=== PATIENT | male | born 1955 | race Caucasian/White ===

== ENCOUNTER 2017-01-01 23:49 | Inpatient (IN) ==
[2017-01-02] MEDS ORDERED: 0.9 % Sodium Chloride 1,000 ML IVC ONE (00:21)
--- NOTE | 2017-01-02 00:21 | Emergency Department Note ---
Disposition Clinical Impression: UTI (urinary tract infection) Qualifiers: Urinary tract infection type: acute cystitis Hematuria presence: without hematuria Qualified Code(s): N30.00 - Acute cystitis without hematuria Disposition: Home, Self-Care Condition: Good Instructions: Urinary Tract Infection in Women (ED) Referrals: NO,PCP [Primary Care Provider] - Forms: ED Satisfaction Letter Time of Disposition: 02:00 Fever HPI - General Chief Complaint: ED Fever Stated Complaint: face all splotchy the other day Time Seen by Provider: 01/02/17 00:15 Source: patient Mode of arrival: ambulatory Limitations: no limitations Nursing Notes Reviewed: Yes Vital Signs Reviewed: Yes - History of Present Illness HPI Narrative: 61-year-old white male with a one-day history of fever and chills. No cough. No earache or sore throat. No vomiting or diarrhea. No frequency or urgency. He has a history of "lung infection" in the past. Pt Subjective Complaint: fever Onset (ago): day(s) (1) Maximum Temperature Reported: 102 F Temperature Source: oral Associated symptoms: Reports: chills Improves with: nothing Worsens with: nothing Treatments prior to arrival fever: none - Related Data Home Medications Medication Instructions Recorded Confirmed Unable To Obtain [Unable to Obtain] 01/01/17 01/01/17 Allergies Allergy/AdvReac Type Severity Reaction Status Date / Time tramadol AdvReac Itching Verified 01/01/17 23:53 All systems ED: reviewed and negative except as stated. Constitutional: Reports: fever, chills Eyes: Denies: eye discharge ENT ED: Denies: ear pain, throat pain Cardiovascular: Denies: chest pain Respiratory: Denies: cough, dyspnea Gastrointestinal: Denies: abdominal pain, nausea, vomiting Genitourinary: Denies: urgency, dysuria, frequency Musculoskeletal: Denies: back pain Integumentary: Denies: rash Neurological: Denies: headache, weakness, numbness, paresthesias Fever PMH - Past Medical History Medical history: Reports: atrial fibrillation, COPD, DVT, other Surgical history: Reports: herniorrhaphy, orthopedic, other (Knee surgery, bilateral carpal tunnel), other (Multiple epidurals, eye surgery) Psychiatric history: Reports: no psych history - Social History Smoking Status: Former smoker Alcohol use: Reports: occasionally Drug use: Reports: none Physical Exam - General Limitations: no limitations General appearance: alert, in no apparent distress - Eye Eye exam: Present: PERRL, EOMI. Absent: scleral icterus, conjunctival injection - ENT ENT exam: normal oropharynx, mucous membranes moist, TM's normal bilaterally - Neck Neck exam: Present: normal inspection, full ROM, trachea midline, lymphadenopathy. Absent: tenderness, meningismus - Respiratory Respiratory exam: Present: normal lung sounds bilaterally. Absent: respiratory distress, wheezes - Cardiovascular Cardiovascular exam: Present: regular rate, normal rhythm, normal heart sounds - Abdominal Exam Abdominal exam: Present: soft, Non-Tender, normal bowel sounds. Absent: organomegaly, mass - Neurological Exam Neurological exam: Present: alert, oriented X3, normal gait - Psychiatric Psychiatric exam: Present: normal affect, normal mood - Skin Skin exam: Present: warm, dry, intact. Absent: erythema Course Vital Signs Temperature 101.4 F H 01/01/17 23:50 Pulse Rate 101 01/01/17 23:50 Respiratory Rate 16 01/01/17 23:50 Blood Pressure 148/77 01/01/17 23:50 O2 Sat by Pulse Oximetry 93 01/01/17 23:50 Temperature 102.9 F H 01/02/17 01:19 Pulse Rate 115 01/02/17 01:51 Respiratory Rate 18 01/02/17 01:51 Blood Pressure 130/45 01/02/17 01:51 O2 Sat by Pulse Oximetry 96 01/02/17 01:51 Oxygen Delivery Oxygen Delivery Room Air Fever - MDM Narrative Medical decision making narrative: Medically he has a persistent fever, he has nitrite positive urine, possible source. He has no elevated white blood cell count. He has a history of bacteremia and/or sepsis. His lactic acid is mildly elevated. I aggressively hydrated him and cover with antibiotics for the possibility of sepsis. I will put him in an observation bed after talking with Dr. Frank. - Differential Diagnosis Likely: cellulitis, fever of occult origin, community acquired pneumonia, pyelonephritis, viral infection, sepsis, influenza - Lab Data Lab results reviewed: Yes I reviewed the patient's lab results. Result diagrams: 01/02/17 00:30 01/02/17 00:30 Lab Results 01/02/17 01/02/17 01/02/17 Range/Units 00:30 00:30 00:30 WBC 7.6 (4.3-11.1) K/mcL RBC 4.12 L (4.19-5.50) M/mcL Hgb 13.1 (12.9-16.9) g/dL Hct 39.1 (37.5-50.1) % MCV 94.9 (83.0-100.0) fL MCH 31.8 (28.0-33.3) pg MCHC 33.5 (31.6-35.5) g/dL RDW 15.9 H (11.5-14.5) % Plt Count 109 L (140-400) K/mcL MPV 10.7 (9.4-12.4) fL Immature Gran % 0.5 (0-4) % Seg Neutrophils % 81.1 % Lymphocytes % 6.0 % Monocytes % 12.2 % Eosinophils % 0.1 % Basophils % 0.1 % Neutrophils # 6.2 (1.6-8.9) K/mcL Lymphocytes # 0.5 L (0.6-4.6) K/mcL Monocytes # 0.9 (0.0-1.3) K/mcL Eosinophils # 0.0 (0.0-0.6) K/mcL Basophils # 0.0 (0.0-0.2) K/mcL VBG Lactic Acid 3.1 H (0.5-2.2) mmol/L Sodium 133 L (136-145) mEq/L Potassium 4.6 H (3.5-4.5) mEq/L Chloride 99 (98-109) mEq/L Carbon Dioxide 23 (19-29) mEq/L BUN 8 (8-26) mg/dL Creatinine 0.76 (0.72-1.25) mg/dL Est GFR ( Amer) > 60 (> 60) Est GFR (Non-Af Amer) > 60 (> 60) BUN/Creatinine Ratio 11 (6-26) Glucose 191 H (70-99) mg/dL Calculated Osmolality 279 L (280-300) Calcium 9.4 (8.6-10.8) mg/dL Total Bilirubin 2.0 H (0.2-1.2) mg/dL AST 60 H (5-34) Units/L ALT 44 (0-55) Units/L Alkaline Phosphatase 94 (38-126) Units/L Serum Total Protein 7.0 (6.0-8.3) g/dL Albumin 3.5 (3.5-5.0) g/dL Globulin 3.5 (2.4-3.5) g/dL Albumin/Globulin Ratio 1.0 L (1.1-2.2) Urine Color (Yellow) Urine Clarity (Clear) Urine pH (5.0-8.0) pH Units Ur Specific [place] (1.010-1.025) Urine Protein (Neg-Trace) mg/dL Urine Glucose (UA) (Normal) mg/dL Urine Ketones (Negative) mg/dL Urine Blood (Negative) Urine Nitrite (Negative) Urine Bilirubin (Negative) Urine Urobilinogen (Normal) mg/dL Ur Leukocyte Esterase (Negative) 01/02/17 Range/Units 00:31 WBC (4.3-11.1) K/mcL RBC (4.19-5.50) M/mcL Hgb (12.9-16.9) g/dL Hct (37.5-50.1) % MCV (83.0-100.0) fL MCH (28.0-33.3) pg MCHC (31.6-35.5) g/dL RDW (11.5-14.5) % Plt Count (140-400) K/mcL MPV (9.4-12.4) fL Immature Gran % (0-4) % Seg Neutrophils % % Lymphocytes % % Monocytes % % Eosinophils % % Basophils % % Neutrophils # (1.6-8.9) K/mcL Lymphocytes # (0.6-4.6) K/mcL Monocytes # (0.0-1.3) K/mcL Eosinophils # (0.0-0.6) K/mcL Basophils # (0.0-0.2) K/mcL VBG Lactic Acid (0.5-2.2) mmol/L Sodium (136-145) mEq/L Potassium (3.5-4.5) mEq/L Chloride (98-109) mEq/L Carbon Dioxide (19-29) mEq/L BUN (8-26) mg/dL Creatinine (0.72-1.25) mg/dL Est GFR ( Amer) (> 60) Est GFR (Non-Af Amer) (> 60) BUN/Creatinine Ratio (6-26) Glucose (70-99) mg/dL Calculated Osmolality (280-300) Calcium (8.6-10.8) mg/dL Total Bilirubin (0.2-1.2) mg/dL AST (5-34) Units/L ALT (0-55) Units/L Alkaline Phosphatase (38-126) Units/L Serum Total Protein (6.0-8.3) g/dL Albumin (3.5-5.0) g/dL Globulin (2.4-3.5) g/dL Albumin/Globulin Ratio (1.1-2.2) Urine Color Dark Yellow (Yellow) Urine Clarity Clear (Clear) Urine pH 6.5 (5.0-8.0) pH Units Ur Specific [place] 1.020 (1.010-1.025) Urine Protein 30 H (Neg-Trace) mg/dL Urine Glucose (UA) Normal (Normal) mg/dL Urine Ketones Negative (Negative) mg/dL Urine Blood Trace-intact H (Negative) Urine Nitrite Positive A (Negative) Urine Bilirubin Small H (Negative) Urine Urobilinogen Normal (Normal) mg/dL Ur Leukocyte Esterase Negative (Negative) - Radiology Data Radiology results reviewed: Yes I reviewed the patient's radiology results. ITS Impressions Chest X-Ray 01/02/17 00:18 IMPRESSION: No acute cardiac or pulmonary disease. D/ / Quentin Barboza MD / Quentin Barboza MD Interpreting Provider: Quentin Barboza MD
[2017-01-02 00:45] LABS: Basophils % 0.1 %; Eosinophils % 0.1 %; Hematocrit 39.1 % (37.5-50.1); Hemoglobin 13.1 g/dL (12.9-16.9); Immature Granulocytes % 0.5 % (0-4); Lymphocytes # 0.5 K/mcL (0.6-4.6); Mean Corpuscular HGB Conc 33.5 g/dL (31.6-35.5); Mean Corpuscular Hemoglobin 31.8 pg (28.0-33.3); Mean Corpuscular Volume 94.9 fL (83.0-100.0); Mean Platelet Volume 10.7 fL (9.4-12.4); Monocytes # 0.9 K/mcL (0.0-1.3); Monocytes % 12.2 %; Neutrophils # 6.2 K/mcL (1.6-8.9); Platelet Count 109 K/mcL (140-400); Red Blood Count 4.12 M/mcL (4.19-5.50); Red Cell Distribution Width 15.9 % (11.5-14.5); Segmented Neutrophils % 81.1 %
[2017-01-02 01:05] LABS: Alanine Aminotransferase 44 Units/L (0-55); Albumin 3.5 g/dL (3.5-5.0); Alkaline Phosphatase 94 Units/L (38-126); Aspartate Amino Transferase 60 Units/L (5-34); BUN/Creatinine Ratio 11 (6-26); Blood Urea Nitrogen 8 mg/dL (8-26); Calcium 9.4 mg/dL (8.6-10.8); Carbon Dioxide 23 mEq/L (19-29); Chloride 99 mEq/L (98-109); Globulin 3.5 g/dL (2.4-3.5); Glucose 191 mg/dL (70-99); Osmolality,Calculated 279 (280-300); Potassium 4.6 mEq/L (3.5-4.5); Sodium 133 mEq/L (136-145); eGFR For African Americans > 60 (> 60); eGFR For Non-African Americans > 60 (> 60)
[2017-01-02 01:05] LABS: Bilirubin,Urine Small (Negative); Blood,Urine Trace-intact (Negative); Clarity,Urine Clear (Clear); Color,Urine Dark Yellow (Yellow); Glucose,Urine (UA) Normal (Normal); Ketones,Urine Negative (Negative); Leukocyte Esterase,Urine Negative (Negative); Nitrite,Urine Positive (Negative); PH,Urine 6.5 pH Units (5.0-8.0); Protein,Urine 30 mg/dL (Neg-Trace); Urobilinogen,Urine Normal (Normal)
[2017-01-02] MEDS ORDERED: Ibuprofen 800 MG TABLET PO STA (01:39)
[2017-01-02] MEDS ORDERED: Naloxone 0.4 MG/ML INJ IVP PRN (02:54)
[2017-01-02] MEDS ORDERED: Levofloxacin 750 MG/150 ML 750 MG/150 ML BAG IVPB ONE (03:07)
[2017-01-02] MEDS: 0.9 % Sodium Chloride 1,000 ML IVC SCH ×2 (03:53→18:54)
--- NOTE | 2017-01-02 12:15 | Internal Med History&Physical ---
Date of Encounter: 01/02/17 Time of Encounter: 11:35 Assessment and Plan (1) Neutrophilia Current visit: Yes Status: Acute Suspect viral infection. Urinalysis and chest x-ray showed no obvious abnormality. (2) Atrial fibrillation Current visit: Yes Status: Chronic Continue Coumadin. Will check pro time/INR in a.m. Qualifiers: Atrial fibrillation type: chronic Qualified Code(s): I48.2 - Chronic atrial fibrillation (3) Hyperglycemia Current visit: Yes Status: Acute We will check hemoglobin A1c in a.m. (4) Thrombocytopenia Current visit: Yes Status: Acute Platelet count was normal at 147,000 in August 2014. We will recheck labs in a.m. (5) Hypothyroidism Current visit: Yes Status: Acute We will check TSH in a.m. Qualifiers: Hypothyroidism type: unspecified Qualified Code(s): E03.9 - Hypothyroidism , unspecified (6) Gout Current visit: Yes Status: Chronic We will check uric acid level in a.m. Qualifiers: Gout site: unspecified site Gout etiology: unspecified cause Chronicity: chronic Presence of tophus: without tophus Qualified Code(s): M1A.9XX0 - Chronic gout, unspecified, without tophus (tophi) Internal Medicine - H&P: HPI Chief complaint: Dyspnea and fever Admitted From: Home Plans for Post Hospital Care: Home History of present illness: Mr. Craig is a 61 year old male who came to emergency room stating he awakened that morning with discomfort in his ribs and dyspnea. Later in the day he spiked fever up to 101. He came to emergency room for further evaluation. He was found to have neutrophilia without leukocytosis. He was admitted to [facility] floor for ongoing care needs. He denies cough nausea vomiting or diarrhea. He has chronic low back pain but denies other pain. He denies family or friends with similar illness. Past Med Surg Social Fam HX - Past Medical History Medical history: atrial fibrillation, COPD, DVT, other Psychiatric history: no psych history - Past Surgical History Surgical History: herniorrhaphy, orthopedic, other, other - Social History Smoking Status: Former smoker Packs per day: 1/2 pack Smokeless Tobacco Status: Yes Alcohol use: occasionally Drug use: none Internal Medicine - H&P: Meds Unable To Obtain [Unable to Obtain] 01/01/17 [History] Allergies tramadol Adverse Reaction (Verified 01/01/17 23:53) Itching All Systems PM: A 10-system review of systems was performed and is negative for pertinent findings except as documented above in the HPI. Review of systems: Gen.: He states his weight has been stable past few months Cardiovascular: He has chronic atrial fibrillation. He had DVT approximately 2008 and had [place]vie filter placed. He denies hypertension heart failure or pulmonary embolism Respiratory: He smoked between age [age] a total of 25 years up to one half pack per day. He has a diagnosis of COPD but does not wear home oxygen. 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 He quit drinking vodka approximately 6 months ago. He still drinks approximately 2 beers per day. He denies disorders of his gallbladder or exocrine pancreas : Denies hematuria dysuria or kidney stones Neurologic: He denies large distribution strokes or seizures Endocrine: He has hypothyroidism but denies diabetes or hyperlipidemia Hematology/oncology: He was found to have thrombocytopenia in the emergency room. He denies anemia or other blood disorders or internal malignancies Psychiatric: He denies anxiety depression or other mental health issues Musk skeletal: He has a diagnosis of gout. He is uncertain if he has rheumatoid arthritis. He denies other bone joint or muscle disorders. - Constitutional Vitals: Temp Pulse Resp BP Pulse Ox 98.3 F 96 19 103/67 96 01/02/17 07:13 01/02/17 07:13 01/02/17 07:13 01/02/17 07:13 01/02/17 07:13 Exam: Gen.: He is well-developed overweight male who appears in no severe distress at present time HEENT: Head is atraumatic and normal cephalic. Eyes: EOMI. There is no scleral icterus. Mouth: Mucosa is moist. Neck: Supple and nontender. There is no thyromegaly or adenopathy noted. Heart: Irregularly irregular with rate 104/m Lungs: No wheezes or crackles are heard. Abdomen: Soft and nontender. No masses or guarding noted. Questionable ascites on percussion. He has several dilated tortuous veins on the anterior and bilateral abdominal wall. Extremities: There is no cyanosis noted. He has chronic venous stasis pigmentation changes of his lower legs bilaterally. He has significant desquamation of the skin of his lower legs and feet. Dorsalis pedis and posterior tibial pulses are nonpalpable. Neurologic: Mental status: He is talkative and a reliable historian. Cranial nerves: Smile is symmetric. Forehead wrinkles bilaterally. Tongue protrudes midline. EOMI. Motor: There is no pronator drift. Cerebellar: Finger to nose is intact bilaterally. Skin: Warm and dry Internal Med - H&P Results - Labs CBC & Chem 7: 01/02/17 00:30 01/02/17 00:30 Labs: Cardiac Enzymes 01/02/17 01/02/17 Range/Units 03:30 08:50 Troponin I 0.04 H* 0.02 (0-0.03) ng/mL
[2017-01-02] MEDS: Acetaminophen 325 MG TABLET PO PRN ×2 (12:19→18:46)
[2017-01-02] MEDS: Ketorolac 30 MG/ML VIAL IVP PRN ×2 (14:49→21:01)
[2017-01-02 15:21] LABS: Acinetobacter baumannii by PCR Not Detected (Not Detect); Candida albicans by PCR Not Detected (Not Detect); Candida glabrata by PCR Not Detected (Not Detect); Candida krusei by PCR Not Detected (Not Detect); Candida parapsilosis by PCR Not Detected (Not Detect); Candida tropicalis by PCR Not Detected (Not Detect); Enterococcus by PCR Not Detected (Not Detect); Escherichia coli by PCR Not Detected (Not Detect); Klebsiella oxytoca by PCR Not Detected (Not Detect); Klebsiella pneumoniae by PCR Not Detected (Not Detect); Pseudomonas aeruginosa by PCR Not Detected (Not Detect); Serratia marcescens by PCR Not Detected (Not Detect); Staphylococcus aureus by PCR Not Detected (Not Detect); Streptococcus agalactiae(B)PCR Not Detected (Not Detect); Streptococcus by PCR ***DETECTED*** (Not Detect); Streptococcus pneumoniae PCR Not Detected (Not Detect); Streptococcus pyogenes (A) PCR Not Detected (Not Detect); blaKPC Carbapenem-Resist Gene Not Detected (Not Detect); mecA Methicillin-Resist Gene Not Detected (Not Detect); vanA/B Vancomycin-Resist Genes Not Detected (Not Detect)
[2017-01-02] MEDS: *HR* Enoxaparin 40 MG/0.4 ML SYRINGE SQ SCH (18:47)
[2017-01-02] MEDS: Lactobacillus 1 EACH CAP.SPRINK PO SCH (20:56)
[2017-01-02] MEDS: Pregabalin 75 MG CAPSULE PO SCH (21:01)
[2017-01-03] MEDS: *HR* Enoxaparin 40 MG/0.4 ML SYRINGE SQ SCH (05:06)
[2017-01-03] MEDS: 0.9 % Sodium Chloride 1,000 ML IVC SCH (05:07)
[2017-01-03 06:06] LABS: Basophils % 0.6 %; Eosinophils % 0.6 %; Hematocrit 35.7 % (37.5-50.1); Hemoglobin 11.9 g/dL (12.9-16.9); INR 1.9; Lymphocytes # 0.3 K/mcL (0.6-4.6); Mean Corpuscular HGB Conc 33.3 g/dL (31.6-35.5); Mean Corpuscular Hemoglobin 31.6 pg (28.0-33.3); Mean Corpuscular Volume 94.9 fL (83.0-100.0); Mean Platelet Volume 11.3 fL (9.4-12.4); Monocytes # 0.5 K/mcL (0.0-1.3); Monocytes % 10.9 %; Neutrophils # 3.9 K/mcL (1.6-8.9); Prothrombin Time 21.4 Seconds (9.4-12.1); Red Blood Count 3.76 M/mcL (4.19-5.50); Red Cell Distribution Width 16.6 % (11.5-14.5); Segmented Neutrophils % 79.9 %
[2017-01-03 06:33] LABS: Platelet Count 85 K/mcL (140-400)
[2017-01-03 06:57] LABS: Alanine Aminotransferase 43 Units/L (0-55); Albumin 2.7 g/dL (3.5-5.0); Albumin/Globulin Ratio 0.9 (1.1-2.2); Alkaline Phosphatase 73 Units/L (38-126); Aspartate Amino Transferase 99 Units/L (5-34); BUN/Creatinine Ratio 21 (6-26); Bilirubin,Total 1.8 mg/dL (0.2-1.2); Blood Urea Nitrogen 15 mg/dL (8-26); Calcium 8.2 mg/dL (8.6-10.8); Carbon Dioxide 19 mEq/L (19-29); Chloride 103 mEq/L (98-109); Globulin 3.1 g/dL (2.4-3.5); Glucose 163 mg/dL (70-99); Magnesium 1.9 mg/dL (1.6-2.6); Osmolality,Calculated 278 (280-300); Sodium 132 mEq/L (136-145); Total Protein 5.8 g/dL (6.0-8.3); Uric Acid 5.5 mg/dL (3.5-7.2); eGFR For African Americans > 60 (> 60); eGFR For Non-African Americans > 60 (> 60)
[2017-01-03 06:59] LABS: Platelet Estimate Decreased (Normal)
[2017-01-03 07:21] LABS: Thyroid Stimulating Hormone 1.558 mcIU/mL (0.350-4.840)
[2017-01-03] MEDS: Pregabalin 75 MG CAPSULE PO SCH ×2 (08:34→21:14)
[2017-01-03] MEDS: Lactobacillus 1 EACH CAP.SPRINK PO SCH ×2 (08:35→21:14)
[2017-01-03 09:19] LABS: Hemoglobin A1C 7.2 %
--- NOTE | 2017-01-03 10:59 | Internal Med Progress Note ---
Date of Encounter: 01/03/17 Time of Encounter: 10:45 - Assessment and plan (1) Neutrophilia Current Visit: Yes Status: Acute Assessment and plan: January 03. Blood cultures return showing evidence of group G streptococcus. Continue Rocephin IV pending final sensitivity report. (2) Atrial fibrillation Current Visit: Yes Status: Chronic Assessment and plan: January 03. Continue Coumadin. INR was acceptable at 1.9. Restart Lanoxin for rate control. We will hold diltiazem since blood pressures are borderline low. Qualifiers: Atrial fibrillation type: chronic Qualified Code(s): I48.2 - Chronic atrial fibrillation (3) Hyperglycemia Current Visit: Yes Status: Acute Assessment and plan: January 03. Hemoglobin A1c is elevated at 7.2%. I explained to him he had DM 2. We will start metformin. (4) Thrombocytopenia Current Visit: Yes Status: Acute Assessment and plan: January 03. Suspect due to combination of past alcohol abuse and current infection. Continue to monitor. (5) Hypothyroidism Current Visit: Yes Status: Acute Assessment and plan: January 03. TSH was normal at 1.558. We will restart home dose of Synthroid at 50 g daily. Qualifiers: Hypothyroidism type: unspecified Qualified Code(s): E03.9 - Hypothyroidism , unspecified (6) Gout Current Visit: Yes Status: Chronic Assessment and plan: January 03. Uric acid was acceptable at 5.5. We will restart allopurinol 300 mg daily as at home. Qualifiers: Gout site: unspecified site Gout etiology: unspecified cause Chronicity: chronic Presence of tophus: without tophus Qualified Code(s): M1A.9XX0 - Chronic gout, unspecified, without tophus (tophi) (7) Foot ulcer, left Current Visit: Yes Status: Chronic Assessment and plan: January 03. He reports he stepped on something several months ago and the ulcer has not healed. We will order MRI to rule out abscess and/or osteomyelitis. Qualifiers: Non-pressure ulcer stage: unspecified non-pressure ulcer stage Qualified Code(s): L97.529 - Non-pressure chronic ulcer of other part of left foot with unspecified severity - Subjective Interval history: January 03. He has no new complaints. - Constitutional Vitals: Temp Pulse Resp BP Pulse Ox 98.6 F 108 22 128/90 98 01/03/17 06:48 01/03/17 06:48 01/03/17 06:48 01/03/17 06:48 01/03/17 06:48 Exam: He is lying in bed and appears in no acute distress. His venous stasis pigmentation changes are more visible since significant skin scales been removed by application of ammonium lactate. There is significant temperature difference between his feet with the right foot cool and the left foot showing increased warmth. He has a scab over an ulcer in the left mid-MTP area on the plantar surface of the foot. I reviewed his medications and lab results. Internal Medicine: Result - Labs CBC & Chem 7: 01/03/17 05:25 01/03/17 05:25 Labs: Short CBC 01/03/17 Range/Units 05:25 WBC 4.9 (4.3-11.1) K/mcL Hgb 11.9 L (12.9-16.9) g/dL Hct 35.7 L (37.5-50.1) % Plt Count 85 L (140-400) K/mcL Neutrophils # 3.9 (1.6-8.9) K/mcL BMP 01/03/17 05:25 Sodium 132 L Potassium 4.0 Chloride 103 Carbon Dioxide 19 BUN 15 Creatinine 0.71 L Glucose 163 H Calcium 8.2 L Liver Function 01/03/17 Range/Units 05:25 Total Bilirubin 1.8 H (0.2-1.2) mg/dL AST 99 H (5-34) Units/L ALT 43 (0-55) Units/L Alkaline Phosphatase 73 (38-126) Units/L Albumin 2.7 L D (3.5-5.0) g/dL - ABG Interpretation ABG results: PT/INR, D-dimer PT 21.4 Seconds (9.4-12.1) H 01/03/17 05:25 Consult Discharge Plan - Plan Referrals: NO,PCP [Primary Care Provider] - 1 week
[2017-01-03] MEDS: Acetaminophen 325 MG TABLET PO PRN (11:31)
[2017-01-03] MEDS: *HR* Digoxin 0.25 MG TABLET PO SCH (11:32)
[2017-01-03] MEDS: Ammonium Lactate 30 APPL/225 GM BOTTLE TP SCH ×2 (12:44→21:14)
[2017-01-03] MEDS: *HR* Metformin 500 MG TABLET PO SCH (16:52)
[2017-01-04 04:53] LABS: Basophils % 0.3 %; Eosinophils % 0.7 %; Hemoglobin 11.8 g/dL (12.9-16.9); Immature Granulocytes % 0.7 % (0-4); Lymphocytes # 0.5 K/mcL (0.6-4.6); Lymphocytes % 9.1 %; Mean Corpuscular HGB Conc 33.7 g/dL (31.6-35.5); Mean Corpuscular Hemoglobin 31.8 pg (28.0-33.3); Mean Corpuscular Volume 94.3 fL (83.0-100.0); Mean Platelet Volume 11.6 fL (9.4-12.4); Monocytes # 0.7 K/mcL (0.0-1.3); Monocytes % 12.2 %; Neutrophils # 4.6 K/mcL (1.6-8.9); Red Blood Count 3.71 M/mcL (4.19-5.50); Red Cell Distribution Width 16.6 % (11.5-14.5)
[2017-01-04 04:54] LABS: Platelet Count 94 K/mcL (140-400)
[2017-01-04] MEDS: *HR* Enoxaparin 40 MG/0.4 ML SYRINGE SQ SCH (06:20)
[2017-01-04] MEDS ORDERED: Levothyroxine 25 MCG TABLET PO SCH (06:30)
[2017-01-04] MEDS: *HR* Digoxin 0.25 MG TABLET PO SCH (08:46)
[2017-01-04] MEDS: Lactobacillus 1 EACH CAP.SPRINK PO SCH (08:47)
[2017-01-04] MEDS: Pregabalin 75 MG CAPSULE PO SCH (08:47)
[2017-01-04] MEDS: *HR* Metformin 500 MG TABLET PO SCH (08:47)
[2017-01-04] MEDS: Ammonium Lactate 30 APPL/225 GM BOTTLE TP SCH (08:48)
[2017-01-04 11:04] VITALS: BP 108/71
--- NOTE | 2017-01-04 12:18 | Discharge Summary ---
Date of Encounter: 01/04/17 Time of Encounter: 12:05 - Discharge Diagnosis (1) Neutrophilia Priority: Primary Status: Acute (2) Atrial fibrillation Priority: Secondary Status: Chronic Qualifiers: Atrial fibrillation type: chronic Qualified Code(s): I48.2 - Chronic atrial fibrillation (3) Thrombocytopenia Priority: Secondary Status: Acute (4) Hypothyroidism Priority: Secondary Status: Acute Qualifiers: Hypothyroidism type: unspecified Qualified Code(s): E03.9 - Hypothyroidism , unspecified (5) Gout Priority: Secondary Status: Chronic Qualifiers: Gout site: unspecified site Gout etiology: unspecified cause Chronicity: chronic Presence of tophus: without tophus Qualified Code(s): M1A.9XX0 - Chronic gout, unspecified, without tophus (tophi) (6) Foot ulcer, left Priority: Secondary Status: Chronic Qualifiers: Non-pressure ulcer stage: unspecified non-pressure ulcer stage Qualified Code(s): L97.529 - Non-pressure chronic ulcer of other part of left foot with unspecified severity (7) DM type 2 (diabetes mellitus, type 2) Priority: Secondary Status: Chronic Qualifiers: Diabetes mellitus complication status: with skin complications Diabetes mellitus complication detail: with foot ulcer Diabetes mellitus penitentiary insulin use: without penitentiary use Qualified Code(s): E11.621 - Type 2 diabetes mellitus with foot ulcer; L97.509 - Non-pressure chronic ulcer of other part of unspecified foot with unspecified severity - Discharge Medications Prescriptions: Azithromycin [Zithromax] 250 mg PO DAILY #7 tablet Lactobacillus [Culturelle] 1 each PO BID #14 cap.sprink metFORMIN [Glucophage] 500 mg PO BIDWM #60 tablet Home Medications: Allopurinol [Zyloprim 300 MG] 300 mg PO DAILY tablet 01/04/17 [Rx] Azithromycin [Zithromax] 250 mg PO DAILY #7 tablet 01/04/17 [Rx] Digoxin [Lanoxin] 0.25 mg PO DAILY tablet 01/04/17 [Rx] Lactobacillus [Culturelle] 1 each PO BID #14 cap.sprink 01/04/17 [Rx] Levothyroxine [Synthroid] 50 mcg PO 0630 tablet 01/04/17 [Rx] Metoprolol [Lopressor] 25 mg PO BID tablet 01/04/17 [Rx] Pregabalin [Lyrica] 150 mg PO BID capsule 01/04/17 [Rx] metFORMIN [Glucophage] 500 mg PO BIDWM #60 tablet 01/04/17 [Rx] Allergies/Adverse Reactions: Allergies tramadol Adverse Reaction (Verified 01/01/17 23:53) Itching Procedures/tests Complete & Pending: Procedures Performed prior 72 hours Category Date Time Status MR foot LT wo/w con [MR] Routine MRI 01/03/17 11:04 Completed Date of admission: 01/02/17 17:16 Primary care physician: Yuli Elizalde CNP - Patient Status Disposition: Home, Self-Care Condition: Good Functional capacity at discharge: independent ambulation Overall status at discharge: patient is progressing back to baseline - Discharge Instructions Follow Up With: Yuli Elizalde CNP [Advanced Practice Nurse] - 1 week - Diet and Activity Activity: resume usual activities as tolerated Diet: diabetic diet Hospital course: Mr. Craig is a 61 year old male who came to emergency room stating he awakened that morning with discomfort in his ribs and dyspnea. Later in the day he spiked fever up to 101. He came to emergency room for further evaluation. He was found to have neutrophilia without leukocytosis. He was admitted to [facility] floor for ongoing care needs. Initial orders were written by the emergency room physician. I saw him on January 02 and performed the history and physical. He was started empirically on Rocephin. Blood cultures returned showing Streptococcus group G. Sensitivity report showed a sensitivity to Rocephin and azithromycin. He will be discharged on azithromycin to complete additional 7 day course. Lactobacillus will also be given. An MRI of the left foot was done to evaluate for osteomyelitis and/or abscess. There was evidence of cellulitis but no obvious osteomyelitis or abscess was seen. He will continue with Zithromax as per above for an additional week. Hemoglobin A1c returned elevated at 7.2%. He was started on metformin and this was tolerated well. Blood sugars returned to a satisfactory range. He will continue this at discharge. TSH and uric acid levels returned acceptable. He had mild anemia with hemoglobin 11.8 on the day of discharge. No anemia workup was done. His platelet count was stable at 94,000 the day of discharge. He will be discharged home and follow with his PCP Yuli Elizalde CMP within 1 week. - Time Spent with Patient Total time spent providing and/or coordinating discharge services: - Constitutional Vitals: Temp Pulse Resp BP Pulse Ox 98.3 F 70 18 108/71 97 01/04/17 11:03 01/04/17 11:03 01/04/17 11:03 01/04/17 11:03 01/04/17 11:03
== END 2017-01-04 13:14 | disposition home or self-care (01) | DRG 809 ==
LOC: INPPIK 23:49 → EMEROOPIK 23:49 → INPPIK 01-02 02:50
PROVIDERS: ADMIT Internal Medicine; ATTEND Internal Medicine